=== PATIENT | male | born 1985 | race Caucasian/White ===

== ENCOUNTER 2022-08-12 13:55 | Emergency (ER) | payer BC ==
[2022-08-12] MEDS ORDERED: Sodium Chloride 0.9% 1,000 ML IV ONE (14:23)
[2022-08-12] MEDS ORDERED: Aspirin 81 MG Tab.Chew PO ONE (14:23)
[2022-08-12 15:03] LABS: CARBON DIOXIDE,CO2 28.8 mmol/L (21.0-32.0)
[2022-08-12 15:34] LABS: CORONAVIRUS COVID-19 NAA NEGATIVE (NEGATIVE); INFLUENZA A NAA NEGATIVE (NEGATIVE); INFLUENZA B NAA NEGATIVE (NEGATIVE); RESPIRATORY SYNCYTIAL VIR NAA NEGATIVE (NEGATIVE)
== END 2022-08-12 16:23 | disposition home or self-care (01) ==
LOC: MW.ED 13:55
DX: R07.89 Other chest pain (principal); Z88.7 Allergy status to serum and vaccine; Z20.822 Contact with and (suspected) exposure to COVID-19
CPT/HCPCS: 0241U; 36415; 71045; 80053; 81003; 84443; 84484; 85025; 85379; 93005; 96360; 99285; A9270; J7030

== ENCOUNTER 2023-08-08 10:30 | Emergency (ER) | payer BC, OTHER ==
[2023-08-08 12:20] LABS: CORONAVIRUS COVID-19 NAA NEGATIVE (NEGATIVE); INFLUENZA A NAA NEGATIVE (NEGATIVE); INFLUENZA B NAA NEGATIVE (NEGATIVE); RESPIRATORY SYNCYTIAL VIR NAA NEGATIVE (NEGATIVE)
== END 2023-08-08 12:58 | disposition home or self-care (01) ==
LOC: MW.ED 10:30
DX: B34.9 Viral infection, unspecified (principal); M25.552 Pain in left hip; Z88.7 Allergy status to serum and vaccine; Z20.822 Contact with and (suspected) exposure to COVID-19
CPT/HCPCS: 0241U; 73502; 99283